=== PATIENT | female | born 1985 | race Caucasian/White ===

== ENCOUNTER 2017-06-24 09:08 | Inpatient (IN) | payer OTHER ==
[2017-06-24 10:03] VITALS: BMI 19.5
--- NOTE | 2017-06-24 10:51 | HP ---
CIWA Score - CIWA Score Nausea/Vomitin Muscle Tremors: 4-Moderate,w/Arms Extend Anxiety: 5 Agitation: 5 Paroxysmal Sweats: 3 Orientation: 2-Disoriented Date<2 days Tacttile Disturbances: 2-Mild Itch/Numbness/Burn Auditory Disturbances: 0-None Visual Disturbances: 0-None Headache: 2-Mild CIWA-Ar Total Score: 26 Admission ROS BHS - HPI Chief Complaint: Withdrawal sx. Allergies/Adverse Reactions: Allergies Allergy/AdvReac Type Severity Reaction Status Date / Time No Known Allergies Allergy Verified 06/24/17 10:02 History of Present Illness: 32 y/o woman with a long hx. of alcoholism is admitted for detox. Pt. is currently receiving suboxone 8mg/d last medicated 06/16/17. Exam Limitations: No Limitations - Ebola screening Have you traveled outside of the country in the last 21 days: No (N) Have you had contact with anyone from an Ebola affected area: No Have you been sick,other than usual withdrawal symptoms: No Do you have a fever: No - Review of Systems Constitutional: Diaphoresis EENT: reports: No Symptoms Reported Respiratory: reports: No Symptoms reported Cardiac: reports: No Symptoms Reported GI: reports: Nausea, Abdominal cramping : reports: No Symptoms Reported Musculoskeletal: reports: No Symptoms Reported Integumentary: reports: Sweating Neuro: reports: Headache, Tremors Endocrine: reports: No Symptoms Reported Hematology: reports: No Symptoms Reported Psychiatric: reports: No Sypmtoms Reported Other Systems: Reviewed and Negative Patient History - Patient Medical History Hx Anemia: No Hx Asthma: No Hx Chronic Obstructive Pulmonary Disease (COPD): No Hx Cancer: No Hx Cardiac Disorders: No Hx Congestive Heart Failure: No Hx Hypertension: No Hx Hypercholesterolemia: No Hx Pacemaker: No HX Cerebrovascular Accident: No Hx Seizures: No Hx Dementia: No Hx Diabetes: No Hx Gastrointestinal Disorders: No Hx Liver Disease: No Hx Genitourinary Disorders: No Hx Sexually Transmitted Disorders: No Hx Renal Disease (ESRD): No Hx Thyroid Disease: No Hx Human Immunodeficiency Virus (HIV): Yes (on complera) Hx Hepatitis C: No Hx Depression: Yes Hx Suicide Attempt: No Hx Bipolar Disorder: No Hx Schizophrenia: No - Patient Surgical History Past Surgical History: No - PPD History Previous Implant?: Yes Documented Results: Negative w/o proof Implanted On Prior [facility] Admission?: No PPD to be Administered?: Yes - Reproductive History Last Menstrual Period: 05/25/17 Patient : No - Smoking Cessation Smoking history: Current every day smoker Have you smoked in the past 12 months: Yes Aproximately how many cigarettes per day: 3 Hx Chewing Tobacco Use: No Initiated information on smoking cessation: Yes 'Breaking Loose' booklet given: 06/24/17 - Substance & Tx. History Hx Alcohol Use: Yes Hx Substance Use: Yes Substance Use Type: Alcohol, Opiates Hx Substance Use Treatment: Yes (Buprenorphine maintenance) - Substances Abused Alcohol Route: Oral Frequency: Daily Amount used: 2 PINTS VODKA Age of first use: 12 Date of Last Use: 06/24/17 PERCOCETS Route: Oral Frequency: Daily Amount used: 2-3 PILLS 10MG Age of first use: 20 Date of Last Use: 06/23/17 Family Disease History - Family Disease History Family History: Denies Admission Physical Exam [facility] - Vital Signs Vital Signs: Vital Signs - 24 hr 06/24/17 09:58 Temperature 96.7 F L Pulse Rate 121 H Respiratory 18 Rate Blood Pressure 127/91 - Physical General Appearance: Yes: Alcohol on Breath, Tremorous, Irritable, Sweating, Anxious HEENTM: Yes: Within Normal Limits Respiratory: Yes: Chest Non-Tender, Lungs Clear, Normal Breath Sounds Neck: Yes: Supple Breast: Yes: Breast Exam Deferred Cardiology: Yes: Regular Rhythm, Regular Rate, S1, S2 Abdominal: Yes: Normal Bowel Sounds, Non Tender, Flat Genitourinary: Yes: Within Normal Limits Back: Yes: Within Normal Limits Musculoskeletal: Yes: Within Normal Limits Extremities: Yes: Tremors Neurological: Yes: Fully Oriented, Alert Integumentary: Yes: Diaphoresis Lymphatic: Yes: Within Normal Limits - Diagnostic (1) Alcohol dependence with uncomplicated withdrawal Current Visit: Yes Status: Acute (2) Opioid dependence on agonist therapy Current Visit: Yes Status: Acute (3) HIV (human immunodeficiency virus infection) Current Visit: Yes Status: Acute Cleared for Admission [facility] - Detox or Rehab [facility] Level of Care: Medically Managed Detox Regimen/Protocol: Valium, Suboxone (Maintenance) [facility] Breath Alcohol Content Breath Alcohol Content: 0.287 Urine Pregancy Test - Result Urine Test Results: Negative- NO Line Present Urine Drug Screen - Results Drug Screen Negative: No Urine Drug Screen Results: AMP-Amphetamines, BZO-Benzodiazepines, OXY-Oxycodone
[2017-06-24] MEDS ORDERED: NICOTINE POLACRILEX 2 MG GUM BUC PRN (11:00)
[2017-06-24] MEDS ORDERED: LOPERAMIDE HCL 2 MG CAPSULE PO PRN (11:00)
[2017-06-24] MEDS ORDERED: MAGNESIUM HYDROX 2400MG/30ML ORAL SUSPENSION 30 ML CUP PO PRN (11:00)
[2017-06-24] MEDS ORDERED: ACETAMINOPHEN 325 MG TABLET (FP) PO PRN (11:00)
[2017-06-24] MEDS ORDERED: guaiFENesin/D-METHORPHAN HB 10 ML UNIT-DOSE CUPS PO PRN (11:00)
[2017-06-24] MEDS ORDERED: MAG HYDROX/AL HYDROX/SIMETH 30 ML UNIT-DOSE CUP PO PRN (11:00)
[2017-06-24] MEDS ORDERED: P-EPHED 60MG/TRIPROLIDI 2.5MG TABLET PO PRN (11:00)
[2017-06-24] MEDS ORDERED: MAGNESIUM CITRATE 300 ML BOTTLE PO PRN (11:00)
[2017-06-24] MEDS ORDERED: MENTHOL/PHENOL 1 EACH UD MM PRN (11:00)
[2017-06-24] MEDS ORDERED: diazePAM 5 MG TABLET PO ONE (11:13)
[2017-06-24] MEDS: hydrOXYzine PAMOATE 25 MG CAPSULE (FP) PO PRN ×2 (11:36→19:03)
[2017-06-24] MEDS: BUPRENORPHINE/NALOXONE 2 MG/0.5 MG FILM PACKET SL SCH ×2 (11:36→22:55)
[2017-06-24] MEDS: IBUPROFEN 400 MG TABLET (FP) PO PRN ×2 (11:37→19:03)
[2017-06-24] MEDS: NICOTINE 7 MG/24 HOURS TOPICAL PATCH TD SCH (11:39)
[2017-06-24] MEDS: EMTRICITAB/RILPIVIRINE/TENOFOV 1 EACH TABLET PO SCH (12:00)
[2017-06-24] MEDS: diazePAM 5 MG TABLET PO SCH ×2 (14:30→22:55)
--- NOTE | 2017-06-24 15:15 | EKG ---
Test Reason : Blood Pressure : / mmHG Vent. Rate : 104 BPM Atrial Rate : 104 BPM P-R Int : 120 ms QRS Dur : 088 ms QT Int : 362 ms P-R-T Axes : 075 076 047 degrees QTc Int : 476 ms SINUS TACHYCARDIA OTHERWISE NORMAL ECG NO PREVIOUS ECGS AVAILABLE Confirmed by MD CHANG, BELLA ([id number]) on 06/24/2017 3:14:44 PM Referred By: Confirmed By:BELLA DOWNING MD
[2017-06-24] MEDS: diazePAM 5 MG TABLET PO PRN ×2 (17:25→20:44)
[2017-06-24] MEDS ORDERED: TRIMETHOBENZAMIDE HCL 200MG/2ML INJ IM ONE (20:30)
[2017-06-24] MEDS: THIAMINE HCL 100 MG TABLET (FP) PO SCH (22:57)
[2017-06-24] MEDS ORDERED: ONDANSETRON *ODT* 4 MG TABLET SL ONE (23:03)
[2017-06-25] MEDS: diazePAM 5 MG TABLET PO PRN ×2 (01:30→09:39)
[2017-06-25] MEDS: diazePAM 5 MG TABLET PO SCH (06:08)
[2017-06-25] MEDS: PRENATAL VITAMINS W/ FOLIC ACID TABLET (FP) PO SCH (09:38)
[2017-06-25] MEDS: BUPRENORPHINE/NALOXONE 2 MG/0.5 MG FILM PACKET SL SCH ×2 (09:39→22:04)
[2017-06-25] MEDS: NICOTINE 7 MG/24 HOURS TOPICAL PATCH TD SCH (09:44)
[2017-06-25 10:02] LABS: HEMATOCRIT 40.3 % (32.4-45.2); HEMOGLOBIN 13.2 GM/dL (10.7-15.3); MCH 29.9 pg (25.7-33.7); MCHC 32.7 g/dl (32.0-36.0); MEAN CELL VOLUME 91.5 fl (80-96); MEAN PLT VOLUME 9.1 fl (7.5-11.1); PLATELET COUNT 210 K/MM3 (134-434); RDW 19.7 % (11.6-15.6); WHITE BLOOD COUNT 7.7 K/mm3 (4.0-10.0)
[2017-06-25 10:03] LABS: CHLORIDE 100 mmol/L (98-107); POTASSIUM 3.4 mmol/L (3.5-5.1); SODIUM 137 mmol/L (136-145)
[2017-06-25 10:14] LABS: ALBUMIN 3.3 g/dl (3.4-5.0); ALK PHOS 117 U/L (45-117); ANION GAP 8 (8-16); BILIRUBIN,TOTAL 2.7 mg/dL (0.2-1.0); BLOOD UREA NITROGEN 16 mg/dL (7-18); CALCIUM 8.5 mg/dL (8.5-10.1); CO2 29 mmol/L (21-32); CREATININE 0.7 mg/dL (0.55-1.02); GLUCOSE,RANDOM 136 mg/dL (74-106); SGOT/AST 136 U/L (15-37); SGPT/ALT 87 U/L (12-78); TOT PROT 6.6 g/dl (6.4-8.2)
--- NOTE | 2017-06-25 10:49 | CONSULT ---
[facility] Psychiatric Consult - Data Date of interview: 06/25/17 Admission source: [facility] Identifying data: Pt. is a 32 year old female, single, mother of one and currently unemployed. This is patient's first admission to [facility]. Pt. admitted to for opiate and alcohol dependence. Substance Abuse History: Following information confirmed with Ms. Headley: - Smoking Cessation. Smoking history: Current every day smoker. Have you smoked in the past 12 months: Yes. Aproximately how many cigarettes per day: 3. Hx Chewing Tobacco Use: No. Initiated information on smoking cessation: Yes. ' Breaking Loose' booklet given: 06/24/17. - Substance & Tx. History. Hx Alcohol Use: Yes. Hx Substance Use: Yes. Substance Use Type: Alcohol, Opiates. Hx Substance Use Treatment: Yes (Buprenorphine maintenance). - Substances Abused. Alcohol. Route: Oral. Frequency: Daily. Amount used: 2 PINTS VODKA. Age of first use: 12. Date of Last Use: 06/24/17. PERCOCETS. Route: Oral. Frequency: Daily. Amount used: 2-3 PILLS 10MG. Age of first use: 20. Date of Last Use: 06/23/17 Medical History: HIV Psychiatric History: Pt. reports h/o one psychiatric hospitalization at a hospital in [place] in 2011 for depression. Pt. is currently provided OPC from the [facility] service in the [place]. Reports a diagnosis of ADHD, anxiety, and MDD. Reports currently taking trazodone 50mg and Wellbutrin 75mg. Pt. denies h/o suicide attempts. Physical/Sexual Abuse/Trauma History: Denies. Mental Status Exam - Mental Status Exam Alert and Oriented to: Time, Place, Person Cognitive Function: Good Patient Appearance: Well Groomed Mood: Withdrawn Affect: Mood Congruent Patient Behavior: Sedated, Fatigued, Guarded Speech Pattern: Delayed Voice Loudness: Moderately Soft/Quiet Thought Process: Goal Oriented Thought Disorder: Not Present Hallucinations: Denies Suicidal Ideation: Denies Homicidal Ideation: Denies Insight/Judgement: Poor Sleep: Fair Appetite: Fair Muscle strength/Tone: Normal Gait/Station: Normal Psychiatric Findings - Problem List ([place] 1, 2,3) (1) MDD (major depressive disorder) Current Visit: Yes Status: Chronic Comment: Self- reports (2) Alcohol dependence with uncomplicated withdrawal Current Visit: Yes Status: Acute (3) Opioid dependence on agonist therapy Current Visit: Yes Status: Acute (4) Anxiety disorder Current Visit: Yes Status: Chronic Comment: Self reports. - Initial Treatment Plan Initial Treatment Plan: Psychoeducation provided. Detoxification provided. Trazodone 50mg po HS and Wellbutrin 75mg po BID daily ordered. Benefits and side effects discussed. Verbal consent given. Will continue to monitor patient.
[2017-06-25] MEDS: EMTRICITAB/RILPIVIRINE/TENOFOV 1 EACH TABLET PO SCH (11:15)
[2017-06-25] MEDS: chlordiazePOXIDE HCL 25 MG CAPSULE PO SCH ×3 (11:16→22:04)
--- NOTE | 2017-06-25 12:52 | PN ---
S CIWA - CIWA Score Nausea/Vomitin Muscle Tremors: 5 Anxiety: 5 Agitation: 5 Paroxysmal Sweats: 3 Orientation: 0-Oriented Tacttile Disturbances: 0-None Auditory Disturbances: 0-None Visual Disturbances: 0-None Headache: 0-None Present CIWA-Ar Total Score: 20 BHS Progress Note (SOAP) Subjective: Tremors,anxiety,sweating,interrupted sleep,restless Objective: 06/25/17 12:51 Vital Signs - 8 hr 06/25/17 06/25/17 06:23 10:29 Temperature 97.9 F 97.9 F Pulse Rate 67 86 Respiratory 18 16 Rate Blood Pressure 117/78 118/72 Laboratory Tests 06/25/17 06/25/17 07:50 07:50 WBC 7.7 RBC 4.40 Hgb 13.2 Hct 40.3 MCV 91.5 MCH 29.9 MCHC 32.7 RDW 19.7 H Plt Count 210 MPV 9.1 Sodium 137 Potassium 3.4 L Chloride 100 Carbon Dioxide 29 Anion Gap 8 BUN 16 Creatinine 0.7 Creat Clearance w eGFR > 60 Random Glucose 136 H Calcium 8.5 Total Bilirubin 2.7 H AST 136 H ALT 87 H Alkaline Phosphatase 117 Total Protein 6.6 Albumin 3.3 L labs noted Assessment: 06/25/17 12:51 Withdrawal sx. Plan: Continue detox
[2017-06-25] MEDS: hydrOXYzine PAMOATE 25 MG CAPSULE (FP) PO PRN (17:48)
[2017-06-25] MEDS: traZODone HCL 50 MG TABLET (FP) PO SCH (22:04)
[2017-06-25] MEDS: THIAMINE HCL 100 MG TABLET (FP) PO SCH (22:05)
[2017-06-25 22:06] LABS: URINE APPEARANCE CLOUDY; URINE BILIRUBIN NEGATIVE (NEGATIVE); URINE BLOOD 1+ (NEGATIVE); URINE COLOR AMBER; URINE GLUCOSE (UA) NEGATIVE (NEGATIVE); URINE KETONE NEGATIVE (NEGATIVE); URINE NITRITE NEGATIVE (NEGATIVE); URINE UROBILINOGEN 4.0 E.U/dl mg/dL (0.2-1.0)
[2017-06-25 22:07] LABS: URINE LEUK ESTERASE 2+ (NEGATIVE); URINE PROTEIN 2+ (NEGATIVE)
[2017-06-25 22:10] LABS: EPI CELLS RARE /HPF (FEW); URINE BACTERIA RARE /hpf (NONE SEEN); URINE MUCUS MODERATE
[2017-06-25] MEDS: ONDANSETRON *ODT* 4 MG TABLET SL PRN (23:08)
[2017-06-26] MEDS: chlordiazePOXIDE HCL 25 MG CAPSULE PO SCH ×4 (06:15→23:00)
[2017-06-26] MEDS: ONDANSETRON *ODT* 4 MG TABLET SL PRN ×2 (06:19→12:50)
[2017-06-26] MEDS ORDERED: diazePAM 5 MG TABLET PO SCH (10:00)
[2017-06-26] MEDS: buPROPion HCL 75 MG TABLET PO SCH (10:40)
[2017-06-26] MEDS: POTASSIUM CHLORIDE TABS 20 MEQ TABLET.ER (FP) PO SCH ×2 (10:40→10:45)
[2017-06-26] MEDS: PRENATAL VITAMINS W/ FOLIC ACID TABLET (FP) PO SCH (10:40)
[2017-06-26] MEDS: NICOTINE 7 MG/24 HOURS TOPICAL PATCH TD SCH (10:41)
[2017-06-26] MEDS: BUPRENORPHINE/NALOXONE 2 MG/0.5 MG FILM PACKET SL SCH ×2 (10:41→23:01)
[2017-06-26] MEDS: EMTRICITAB/RILPIVIRINE/TENOFOV 1 EACH TABLET PO SCH (10:41)
[2017-06-26] MEDS: hydrOXYzine PAMOATE 25 MG CAPSULE (FP) PO PRN ×2 (10:41→19:59)
[2017-06-26] MEDS: chlordiazePOXIDE HCL 25 MG CAPSULE PO PRN (12:50)
--- NOTE | 2017-06-26 12:53 | PN ---
[facility] CIWA - CIWA Score Nausea/Vomitin Muscle Tremors: 4-Moderate,w/Arms Extend Anxiety: 4-Mod. Anxious/Guarded Agitation: 4-Moderately Restless Paroxysmal Sweats: 1-Minimal Palms Moist Orientation: 0-Oriented Tacttile Disturbances: 0-None Auditory Disturbances: 0-None Visual Disturbances: 0-None Headache: 0-None Present CIWA-Ar Total Score: 15 BHS Progress Note (SOAP) Subjective: sweat tremor GI distress "I took a shower" Objective: 06/26/17 12:57 Vital Signs Temperature 97.7 F 06/26/17 10:26 Pulse Rate 109 H 06/26/17 10:26 Respiratory Rate 16 06/26/17 10:26 Blood Pressure 102/61 06/26/17 10:26 O2 Sat by Pulse Oximetry (%) Laboratory Last Values WBC 7.7 K/mm3 (4.0-10.0) 06/25/17 07:50 RBC 4.40 M/mm3 (3.60-5.2) 06/25/17 07:50 Hgb 13.2 GM/dL (10.7-15.3) 06/25/17 07:50 Hct 40.3 % (32.4-45.2) 06/25/17 07:50 MCV 91.5 fl (80-96) 06/25/17 07:50 MCH 29.9 pg (25.7-33.7) 06/25/17 07:50 MCHC 32.7 g/dl (32.0-36.0) 06/25/17 07:50 RDW 19.7 % (11.6-15.6) H 06/25/17 07:50 Plt Count 210 K/MM3 (134-434) 06/25/17 07:50 MPV 9.1 fl (7.5-11.1) 06/25/17 07:50 Sodium 137 mmol/L (136-145) 06/25/17 07:50 Potassium 3.4 mmol/L (3.5-5.1) L 06/25/17 07:50 Chloride 100 mmol/L (98-107) 06/25/17 07:50 Carbon Dioxide 29 mmol/L (21-32) 06/25/17 07:50 Anion Gap 8 (8-16) 06/25/17 07:50 BUN 16 mg/dL (7-18) 06/25/17 07:50 Creatinine 0.7 mg/dL (0.55-1.02) 06/25/17 07:50 Creat Clearance w eGFR > 60 (>60) 06/25/17 07:50 Random Glucose 136 mg/dL (74-106) H 06/25/17 07:50 Calcium 8.5 mg/dL (8.5-10.1) 06/25/17 07:50 Total Bilirubin 2.7 mg/dL (0.2-1.0) H 06/25/17 07:50 AST 136 U/L (15-37) H 06/25/17 07:50 ALT 87 U/L (12-78) H 06/25/17 07:50 Alkaline Phosphatase 117 U/L (45-117) 06/25/17 07:50 Total Protein 6.6 g/dl (6.4-8.2) 06/25/17 07:50 Albumin 3.3 g/dl (3.4-5.0) L 06/25/17 07:50 Urine Color Desirae 06/25/17 22:00 Urine Appearance Cloudy 06/25/17 22:00 Urine pH 7.0 (5.0-8.0) 06/25/17 22:00 Ur Specific [place] 1.018 (1.001-1.035) 06/25/17 22:00 Urine Protein 2+ (NEGATIVE) H 06/25/17 22:00 Urine Glucose (UA) Negative (NEGATIVE) 06/25/17 22:00 Urine Ketones Negative (NEGATIVE) 06/25/17 22:00 Urine Blood 1+ (NEGATIVE) H 06/25/17 22:00 Urine Nitrite Negative (NEGATIVE) 06/25/17 22:00 Urine Bilirubin Negative (NEGATIVE) 06/25/17 22:00 Urine Urobilinogen 4.0 e.u/dl mg/dL (0.2-1.0) H 06/25/17 22:00 Ur Leukocyte Esterase 2+ (NEGATIVE) H 06/25/17 22:00 Urine WBC (Auto) 419 /hpf (3-5) 06/25/17 22:00 Urine RBC (Auto) 6 /hpf (0-3) 06/25/17 22:00 Ur Epithelial Cells Rare /HPF (FEW) 06/25/17 22:00 Urine Bacteria Rare /hpf (NONE SEEN) 06/25/17 22:00 Urine Mucus Moderate 06/25/17 22:00 RPR Titer Nonreactive (NONREACTIVE) 06/25/17 07:50 lab noted Assessment: 06/26/17 12:58 withdrawal sx Plan: continue detox
[2017-06-26] MEDS: THIAMINE HCL 100 MG TABLET (FP) PO SCH (23:00)
[2017-06-26] MEDS: traZODone HCL 50 MG TABLET (FP) PO SCH (23:00)
[2017-06-27] MEDS: chlordiazePOXIDE HCL 25 MG CAPSULE PO SCH (05:34)
[2017-06-27] MEDS: EMTRICITAB/RILPIVIRINE/TENOFOV 1 EACH TABLET PO SCH (08:02)
[2017-06-27] MEDS: hydrOXYzine PAMOATE 25 MG CAPSULE (FP) PO PRN ×2 (08:54→17:06)
[2017-06-27] MEDS: NICOTINE 7 MG/24 HOURS TOPICAL PATCH TD SCH (11:16)
[2017-06-27] MEDS: POTASSIUM CHLORIDE TABS 20 MEQ TABLET.ER (FP) PO SCH (11:16)
[2017-06-27] MEDS: PRENATAL VITAMINS W/ FOLIC ACID TABLET (FP) PO SCH (11:17)
[2017-06-27] MEDS: BUPRENORPHINE/NALOXONE 2 MG/0.5 MG FILM PACKET SL SCH ×2 (11:17→22:33)
[2017-06-27] MEDS: chlordiazePOXIDE 5 MG CAPSULE PO SCH ×3 (11:18→22:33)
[2017-06-27] MEDS: chlordiazePOXIDE HCL 25 MG CAPSULE PO PRN (13:21)
[2017-06-27] MEDS: buPROPion HCL 75 MG TABLET PO SCH (13:23)
--- NOTE | 2017-06-27 14:52 | PN ---
BHS Progress Note (SOAP) Subjective: lower back pain hip pain shakes Objective: 06/27/17 14:50 Vital Signs Temperature 97.5 F L 06/27/17 14:42 Pulse Rate 125 H 06/27/17 14:42 Respiratory Rate 20 06/27/17 14:42 Blood Pressure 108/64 06/27/17 14:42 O2 Sat by Pulse Oximetry (%) Laboratory Last Values WBC 7.7 K/mm3 (4.0-10.0) 06/25/17 07:50 RBC 4.40 M/mm3 (3.60-5.2) 06/25/17 07:50 Hgb 13.2 GM/dL (10.7-15.3) 06/25/17 07:50 Hct 40.3 % (32.4-45.2) 06/25/17 07:50 MCV 91.5 fl (80-96) 06/25/17 07:50 MCH 29.9 pg (25.7-33.7) 06/25/17 07:50 MCHC 32.7 g/dl (32.0-36.0) 06/25/17 07:50 RDW 19.7 % (11.6-15.6) H 06/25/17 07:50 Plt Count 210 K/MM3 (134-434) 06/25/17 07:50 MPV 9.1 fl (7.5-11.1) 06/25/17 07:50 Sodium 137 mmol/L (136-145) 06/25/17 07:50 Potassium 3.4 mmol/L (3.5-5.1) L 06/25/17 07:50 Chloride 100 mmol/L (98-107) 06/25/17 07:50 Carbon Dioxide 29 mmol/L (21-32) 06/25/17 07:50 Anion Gap 8 (8-16) 06/25/17 07:50 BUN 16 mg/dL (7-18) 06/25/17 07:50 Creatinine 0.7 mg/dL (0.55-1.02) 06/25/17 07:50 Creat Clearance w eGFR > 60 (>60) 06/25/17 07:50 Random Glucose 136 mg/dL (74-106) H 06/25/17 07:50 Calcium 8.5 mg/dL (8.5-10.1) 06/25/17 07:50 Total Bilirubin 2.7 mg/dL (0.2-1.0) H 06/25/17 07:50 AST 136 U/L (15-37) H 06/25/17 07:50 ALT 87 U/L (12-78) H 06/25/17 07:50 Alkaline Phosphatase 117 U/L (45-117) 06/25/17 07:50 Total Protein 6.6 g/dl (6.4-8.2) 06/25/17 07:50 Albumin 3.3 g/dl (3.4-5.0) L 06/25/17 07:50 Urine Color Desirae 06/25/17 22:00 Urine Appearance Cloudy 06/25/17 22:00 Urine pH 7.0 (5.0-8.0) 06/25/17 22:00 Ur Specific [place] 1.018 (1.001-1.035) 06/25/17 22:00 Urine Protein 2+ (NEGATIVE) H 06/25/17 22:00 Urine Glucose (UA) Negative (NEGATIVE) 06/25/17 22:00 Urine Ketones Negative (NEGATIVE) 06/25/17 22:00 Urine Blood 1+ (NEGATIVE) H 06/25/17 22:00 Urine Nitrite Negative (NEGATIVE) 06/25/17 22:00 Urine Bilirubin Negative (NEGATIVE) 06/25/17 22:00 Urine Urobilinogen 4.0 e.u/dl mg/dL (0.2-1.0) H 06/25/17 22:00 Ur Leukocyte Esterase 2+ (NEGATIVE) H 06/25/17 22:00 Urine WBC (Auto) 419 /hpf (3-5) 06/25/17 22:00 Urine RBC (Auto) 6 /hpf (0-3) 06/25/17 22:00 Ur Epithelial Cells Rare /HPF (FEW) 06/25/17 22:00 Urine Bacteria Rare /hpf (NONE SEEN) 06/25/17 22:00 Urine Mucus Moderate 06/25/17 22:00 RPR Titer Nonreactive (NONREACTIVE) 06/25/17 07:50 labs noted Assessment: 06/27/17 14:51 withdrawal sx Plan: continue detox
[2017-06-27] MEDS: IBUPROFEN 400 MG TABLET (FP) PO PRN (17:08)
[2017-06-27] MEDS: ONDANSETRON *ODT* 4 MG TABLET SL PRN (17:15)
[2017-06-27] MEDS: traZODone HCL 50 MG TABLET (FP) PO SCH (22:33)
[2017-06-27] MEDS: THIAMINE HCL 100 MG TABLET (FP) PO SCH (22:33)
[2017-06-28] MEDS: hydrOXYzine PAMOATE 25 MG CAPSULE (FP) PO PRN ×4 (00:40→22:33)
[2017-06-28] MEDS: chlordiazePOXIDE 5 MG CAPSULE PO SCH (05:34)
[2017-06-28] MEDS: EMTRICITAB/RILPIVIRINE/TENOFOV 1 EACH TABLET PO SCH (08:19)
[2017-06-28] MEDS ORDERED: diazePAM 5 MG TABLET PO SCH (10:00)
[2017-06-28] MEDS: chlordiazePOXIDE HCL 10 MG CAPSULE PO SCH ×3 (10:52→22:33)
[2017-06-28] MEDS: PRENATAL VITAMINS W/ FOLIC ACID TABLET (FP) PO SCH (10:52)
[2017-06-28] MEDS: NICOTINE 7 MG/24 HOURS TOPICAL PATCH TD SCH (10:52)
[2017-06-28] MEDS: POTASSIUM CHLORIDE TABS 20 MEQ TABLET.ER (FP) PO SCH (10:52)
[2017-06-28] MEDS: BUPRENORPHINE/NALOXONE 2 MG/0.5 MG FILM PACKET SL SCH ×2 (10:53→17:03)
[2017-06-28] MEDS: buPROPion HCL 75 MG TABLET PO SCH (10:53)
[2017-06-28] MEDS: ONDANSETRON *ODT* 4 MG TABLET SL PRN (12:34)
--- NOTE | 2017-06-28 14:43 | PN ---
BHS Progress Note (SOAP) Subjective: poor sleep anxiety shaky Objective: 06/28/17 14:42 Laboratory Tests 06/25/17 06/25/17 06/25/17 07:50 07:50 07:50 WBC 7.7 RBC 4.40 Hgb 13.2 Hct 40.3 MCV 91.5 MCH 29.9 MCHC 32.7 RDW 19.7 H Plt Count 210 MPV 9.1 Sodium 137 Potassium 3.4 L Chloride 100 Carbon Dioxide 29 Anion Gap 8 BUN 16 Creatinine 0.7 Creat Clearance w eGFR > 60 Random Glucose 136 H Calcium 8.5 Total Bilirubin 2.7 H AST 136 H ALT 87 H Alkaline Phosphatase 117 Total Protein 6.6 Albumin 3.3 L Urine Color Urine Appearance Urine pH Ur Specific [place] Urine Protein Urine Glucose (UA) Urine Ketones Urine Blood Urine Nitrite Urine Bilirubin Urine Urobilinogen Ur Leukocyte Esterase Urine WBC (Auto) Urine RBC (Auto) Ur Epithelial Cells Urine Bacteria Urine Mucus RPR Titer Nonreactive 06/25/17 22:00 WBC RBC Hgb Hct MCV MCH MCHC RDW Plt Count MPV Sodium Potassium Chloride Carbon Dioxide Anion Gap BUN Creatinine Creat Clearance w eGFR Random Glucose Calcium Total Bilirubin AST ALT Alkaline Phosphatase Total Protein Albumin Urine Color Desirae Urine Appearance Cloudy Urine pH 7.0 Ur Specific [place] 1.018 Urine Protein 2+ H Urine Glucose (UA) Negative Urine Ketones Negative Urine Blood 1+ H Urine Nitrite Negative Urine Bilirubin Negative Urine Urobilinogen 4.0 e.u/dl H Ur Leukocyte Esterase 2+ H Urine WBC (Auto) 419 Urine RBC (Auto) 6 Ur Epithelial Cells Rare Urine Bacteria Rare Urine Mucus Moderate RPR Titer Vital Signs - 24 hr 06/27/17 06/27/17 06/28/17 18:39 23:13 03:30 Temperature 97.9 F 98.2 F Pulse Rate 119 H 113 H Respiratory 18 16 18 Rate Blood Pressure 106/57 89/74 06/28/17 06/28/17 06:00 09:40 Temperature 97.9 F 98.0 F Pulse Rate 95 H 108 H Respiratory 16 18 Rate Blood Pressure 101/64 105/70 Assessment: 06/28/17 14:42 ongoing withdrawal Plan: continue detox protocol
[2017-06-28] MEDS: IBUPROFEN 400 MG TABLET (FP) PO PRN (17:03)
[2017-06-28] MEDS: THIAMINE HCL 100 MG TABLET (FP) PO SCH (22:33)
[2017-06-28] MEDS: traZODone HCL 50 MG TABLET (FP) PO SCH (22:43)
[2017-06-29] MEDS: hydrOXYzine PAMOATE 25 MG CAPSULE (FP) PO PRN ×2 (02:54→09:29)
[2017-06-29] MEDS: chlordiazePOXIDE HCL 10 MG CAPSULE PO SCH (06:11)
[2017-06-29 06:52] VITALS: BP 105/64; PULSE 87; TEMP 97.7
--- NOTE | 2017-06-29 09:08 | DS ---
[facility] Detox Discharge Summary Admission Date: 06/24/17 Discharge Date: 06/29/17 - History Present History: Alcohol Dependence, Opioid Dependence - Physical Exam Results Vital Signs: Vital Signs Temperature 97.7 F 06/29/17 06:00 Pulse Rate 87 06/29/17 06:00 Respiratory Rate 16 06/29/17 06:00 Blood Pressure 105/64 06/29/17 06:00 O2 Sat by Pulse Oximetry (%) - Treatment Hospital Course: Detox Protocol Followed, Detoxed Safely, Responded well, Discharged Condition Good - Medication Discharge Medications: Ambulatory Orders Buprenorphine HCl/Naloxone HCl [Suboxone 8 mg-2 mg Sl Tablets] 1 each SL DAILY 06/24/17 Dextroamphetamine/Amphetamine [Adderall Xr 30 mg Capsule] 30 mg PO DAILY Emtricitab/Rilpivirine/Tenofov [Complera -] 1 each PO DAILY 06/24/17 Bupropion HCl [Wellbutrin -] 75 mg PO DAILY #30 tablet 06/28/17 Hydroxyzine Pamoate [Vistaril -] 50 mg PO Q6H PRN #30 capsule 06/28/17 Trazodone HCl [Desyrel -] 50 mg PO HS #30 tablet 06/28/17 - Diagnosis (1) Alcohol dependence with uncomplicated withdrawal Current Visit: Yes Status: Chronic (2) HIV (human immunodeficiency virus infection) Current Visit: Yes Status: Chronic (3) Opioid dependence on agonist therapy Current Visit: Yes Status: Chronic (4) Anxiety disorder Current Visit: Yes Status: Chronic Qualifiers: Anxiety disorder type: unspecified anxiety disorder Qualified Code(s): F41.9 - Anxiety disorder, unspecified - AMA Did Patient Leave Against Medical Advice: No
[2017-06-29] MEDS: BUPRENORPHINE/NALOXONE 2 MG/0.5 MG FILM PACKET SL SCH (09:26)
[2017-06-29] MEDS: buPROPion HCL 75 MG TABLET PO SCH (09:26)
[2017-06-29] MEDS: PRENATAL VITAMINS W/ FOLIC ACID TABLET (FP) PO SCH (09:26)
[2017-06-29] MEDS: EMTRICITAB/RILPIVIRINE/TENOFOV 1 EACH TABLET PO SCH (09:26)
[2017-06-29] MEDS: POTASSIUM CHLORIDE TABS 20 MEQ TABLET.ER (FP) PO SCH (09:26)
== END 2017-06-29 09:36 | disposition home or self-care (01) | DRG 773 ==
LOC: YASAS 09:08 → Y6N 10:54
PROVIDERS: ADMIT Internal Medicine; ATTEND Internal Medicine
PROC: HZ2ZZZZ Detoxification Services for Substance Abuse Treatment (ICD-10-PCS; principal; 2017-06-24)
DX: F10.230 Alcohol dependence with withdrawal, uncomplicated (principal); F11.20 Opioid dependence, uncomplicated; F17.210 Nicotine dependence, cigarettes, uncomplicated; F41.9 Anxiety disorder, unspecified; F33.9 Major depressive disorder, recurrent, unspecified; Z21 Asymptomatic human immunodeficiency virus [HIV] infection status
CPT/HCPCS: 36415; 80053; 81003; 81015; 85027; 86593; 93005; 93010

== ENCOUNTER 2017-08-03 08:59 | Inpatient (IN) | payer OTHER ==
[2017-08-03 09:23] VITALS: BMI 17.2
--- NOTE | 2017-08-03 10:34 | HP ---
COWS - Scale Resting Pulse: 2= [place] 101-120 Sweatin=Flushed/Facial Moisture Restless Observation: 1= Difficult to Sit Still Pupil Size: 0= Normal to Room Light Bone or Joint Aches: 2= Severe Diffuse Aches Runny Nose/ Eye Tearin= Runny Nose/Eyes GI Upset > 30mins: 2= Nausea/Diarrhea Tremor Observation: 2= Slight Tremor Visible Yawning Observation: 2= >3x During Session Anxiety or Irritability: 2=Irritable/Anxious Goose Flesh Skin: 3=Piloerection COWS Score: 20 CIWA Score - CIWA Score Nausea/Vomitin-Mild Nausea/No Vomiting Muscle Tremors: 4-Moderate,w/Arms Extend Anxiety: 4-Mod. Anxious/Guarded Agitation: 4-Moderately Restless Paroxysmal Sweats: 3 Orientation: 0-Oriented Tacttile Disturbances: 0-None Auditory Disturbances: 0-None Visual Disturbances: 0-None Headache: 1-Very Mild CIWA-Ar Total Score: 17 Admission ROS BHS - HPI Chief Complaint: I need to stop drinking and need the help I need. Allergies/Adverse Reactions: Allergies Allergy/AdvReac Type Severity Reaction Status Date / Time No Known Drug Allergies Allergy Verified 08/03/17 09:37 meat Allergy Unknown Uncoded 08/03/17 09:37 History of Present Illness: pt is a 32yr old female with a history of percocet and alcohol dependence seeking detox for treatment. pt states she was on suboxone but hasnt been to a program over a year therefore she is willing to complete detox then go to our rehab for further tx and start suboxone while in our rehab. Exam Limitations: No Limitations - Ebola screening Have you traveled outside of the country in the last 21 days: No (N) Have you had contact with anyone from an Ebola affected area: No Have you been sick,other than usual withdrawal symptoms: No Do you have a fever: No - Review of Systems Constitutional: Chills, Diaphoresis, Loss of Appetite, Night Sweats, Changes in sleep, Unintentional Wgt. Loss EENT: reports: Tearing, Nose Congestion Respiratory: reports: No Symptoms reported Cardiac: reports: No Symptoms Reported GI: reports: Nausea, Poor Appetite, Poor Fluid Intake : reports: No Symptoms Reported Musculoskeletal: reports: Back Pain, Joint Pain, Muscle Pain Integumentary: reports: Flushing, Sweating Neuro: reports: Headache, Tingling, Tremors Endocrine: reports: Excessive Sweating, Intolerance to Heat, Increased Hunger Hematology: reports: No Symptoms Reported Psychiatric: reports: Judgement Intact, Mood/Affect Appropiate, Agitated, Anxious Other Systems: Reviewed and Negative Patient History - Patient Medical History Hx Anemia: No Hx Asthma: No Hx Chronic Obstructive Pulmonary Disease (COPD): No Hx Cancer: No Hx Cardiac Disorders: No Hx Congestive Heart Failure: No Hx Hypertension: No Hx Hypercholesterolemia: No Hx Pacemaker: No HX Cerebrovascular Accident: No Hx Seizures: No Hx Dementia: No Hx Diabetes: No Hx Gastrointestinal Disorders: No Hx Liver Disease: No Hx Genitourinary Disorders: No Hx Sexually Transmitted Disorders: No Hx Renal Disease (ESRD): No Hx Thyroid Disease: No Hx Human Immunodeficiency Virus (HIV): Yes (on complera) Hx Hepatitis C: No Hx Depression: Yes Hx Suicide Attempt: No Hx Bipolar Disorder: No Hx Schizophrenia: No - Patient Surgical History Past Surgical History: No Hx Neurologic Surgery: No Hx Cataract Extraction: No Hx Cardiac Surgery: No Hx Lung Surgery: No Hx Breast Surgery: No Hx Breast Biopsy: No Hx Abdominal Surgery: No Hx Appendectomy: No Hx Cholecystectomy: No Hx Genitourinary Surgery: No Hx Section: No Hx Orthopedic Surgery: No - PPD History Previous Implant?: Yes Documented Results: Negative w/proof Implanted On Prior [facility] Admission?: Yes Date: 06/26/17 Results: 0 mm PPD to be Administered?: No - Reproductive History Patient is a Female of Child Bearing Age (11 -55 yrs old): Yes Last Menstrual Period: 08/03/17 Patient : No - Smoking Cessation Smoking history: Current every day smoker Have you smoked in the past 12 months: Yes Aproximately how many cigarettes per day: 20 Hx Chewing Tobacco Use: No Initiated information on smoking cessation: Yes 'Breaking Loose' booklet given: 08/03/17 - Substance & Tx. History Hx Alcohol Use: Yes Hx Substance Use: Yes Substance Use Type: Alcohol, Opiates Hx Substance Use Treatment: Yes ([facility] 06/2017) - Substances Abused Alcohol-vodka Route: Oral Frequency: Daily Amount used: fifth Age of first use: 12 Date of Last Use: 08/03/17 Percocet Route: Oral Frequency: 1-3 times last 30 days Amount used: 2 tabs. (10 mg.) Age of first use: 17 Date of Last Use: 08/03/17 Family Disease History - Family Disease History Family History: Denies Admission Physical Exam [facility] - Vital Signs Vital Signs: Vital Signs - 24 hr 08/03/17 09:14 Temperature 98 F Pulse Rate 120 H Respiratory 18 Rate Blood Pressure 119/85 - Physical General Appearance: Yes: Appropriately Dressed, Moderate Distress, Thin, Tremorous, Irritable, Sweating, Anxious HEENTM: Yes: Normal Voice, Rhinorrhea Respiratory: Yes: Lungs Clear, Normal Breath Sounds, No Respiratory Distress Neck: Yes: No masses,lesions,Nodules Breast: Yes: Within Normal Limits Cardiology: Yes: Regular Rhythm, Regular Rate, S1, S2, Tachycardia Abdominal: Yes: Normal Bowel Sounds, Non Tender, Soft Genitourinary: Yes: Within Normal Limits Back: Yes: Normal Inspection Musculoskeletal: Yes: Within Normal Limits, Back pain Extremities: Yes: Normal Capillary Refill, Normal Inspection, Non-Tender, Tremors Neurological: Yes: Fully Oriented, Alert, Normal Response Integumentary: Yes: Normal Color, Diaphoresis Lymphatic: Yes: Within Normal Limits - Diagnostic (1) Alcohol dependence with uncomplicated withdrawal Current Visit: Yes Status: Chronic (2) Anxiety disorder Current Visit: No Status: Chronic Qualifiers: Comment: Self reports. (3) HIV (human immunodeficiency virus infection) Current Visit: Yes Status: Chronic Cleared for Admission [facility] - Detox or Rehab [facility] Level of Care: Medically Managed Detox Regimen/Protocol: Methadone/Librium [facility] Breath Alcohol Content Breath Alcohol Content: 0.430 Urine Pregancy Test - Result Urine Test Results: Negative- NO Line Present Urine Drug Screen - Results Drug Screen Negative: No Urine Drug Screen Results: TCA-Tricyclic Antidepress, OXY-Oxycodone
[2017-08-03] MEDS ORDERED: P-EPHED 60MG/TRIPROLIDI 2.5MG TABLET PO PRN (11:01)
[2017-08-03] MEDS ORDERED: MAGNESIUM HYDROX 2400MG/30ML ORAL SUSPENSION 30 ML CUP PO PRN (11:01)
[2017-08-03] MEDS ORDERED: LOPERAMIDE HCL 2 MG CAPSULE PO PRN (11:01)
[2017-08-03] MEDS ORDERED: guaiFENesin/D-METHORPHAN HB 10 ML UNIT-DOSE CUPS PO PRN (11:01)
[2017-08-03] MEDS ORDERED: MAG HYDROX/AL HYDROX/SIMETH 30 ML UNIT-DOSE CUP PO PRN (11:01)
[2017-08-03] MEDS ORDERED: MAGNESIUM CITRATE 300 ML BOTTLE PO PRN (11:01)
[2017-08-03] MEDS ORDERED: MENTHOL/PHENOL 1 EACH UD MM PRN (11:01)
[2017-08-03] MEDS ORDERED: IBUPROFEN 400 MG TABLET (FP) PO PRN (11:01)
[2017-08-03] MEDS ORDERED: chlordiazePOXIDE HCL 25 MG CAPSULE PO ONE (11:45)
[2017-08-03] MEDS ORDERED: cloNIDine HCL 0.1 MG TABLET PO ONE (11:45)
[2017-08-03] MEDS ORDERED: METHADONE HCL 10 MG TABLET (FOR DETOX USE ONLY) PO ONE ×2 (11:50→23:00)
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
[2017-08-03] MEDS: chlordiazePOXIDE HCL 25 MG CAPSULE PO SCH ×2 (17:11→22:24)
[2017-08-03] MEDS: hydrOXYzine PAMOATE 50 MG CAPSULE (FP) PO PRN (18:19)
[2017-08-03] MEDS: chlordiazePOXIDE HCL 25 MG CAPSULE PO PRN (19:37)
[2017-08-03] MEDS: THIAMINE HCL 100 MG TABLET (FP) PO SCH (22:23)
[2017-08-03] MEDS: traZODone HCL 50 MG TABLET (FP) PO SCH (22:24)
[2017-08-03 23:01] LABS: URINE APPEARANCE TURBID; URINE BILIRUBIN NEGATIVE (NEGATIVE); URINE BLOOD NEGATIVE (NEGATIVE); URINE COLOR RED; URINE GLUCOSE (UA) NEGATIVE (NEGATIVE); URINE KETONE TRACE (NEGATIVE); URINE NITRITE NEGATIVE (NEGATIVE)
[2017-08-03 23:07] LABS: URINE LEUK ESTERASE 2+ (NEGATIVE); URINE PROTEIN 2+ (NEGATIVE)
[2017-08-03 23:26] LABS: EPI CELLS RARE /HPF (FEW); URINE MUCUS MANY
[2017-08-04] MEDS: chlordiazePOXIDE HCL 25 MG CAPSULE PO SCH ×4 (04:19→22:01)
--- NOTE | 2017-08-04 08:46 | PN ---
[facility] CIWA - CIWA Score Nausea/Vomitin-Mild Nausea/No Vomiting Muscle Tremors: 4-Moderate,w/Arms Extend Anxiety: 4-Mod. Anxious/Guarded Agitation: 4-Moderately Restless Paroxysmal Sweats: 1-Minimal Palms Moist Orientation: 0-Oriented Tacttile Disturbances: 1-Very Mild Itch/Numbness Auditory Disturbances: 0-None Visual Disturbances: 0-None Headache: 0-None Present CIWA-Ar Total Score: 15 S COWS - Scale Resting Pulse: 2= ND 101-120 Sweatin= Chills/Flushing Restless Observation: 3= Extraneous Movement Pupil Size: 0= Normal to Room Light Bone or Joint Aches: 2= Severe Diffuse Aches Runny Nose/ Eye Tearin= Runny Nose/Eyes GI Upset > 30mins: 2= Nausea/Diarrhea Tremor Observation of Outstretched Hands: 2= Slight Tremor Visible Yawning Observation: 2= >3x During Session Anxiety or Irritability: 2=Irritable/Anxious Goose Flesh Skin: 0=Smooth Skin COWS Score: 18 [facility] Progress Note (SOAP) Subjective: itching skin sweat tremor restlessness gi distress Objective: 08/04/17 08:46 Vital Signs Temperature 97.7 F 08/04/17 06:00 Pulse Rate 61 08/04/17 06:00 Respiratory Rate 18 08/04/17 06:00 Blood Pressure 118/84 08/04/17 06:00 O2 Sat by Pulse Oximetry (%) Laboratory Last Values Urine Color Red 08/03/17 20:00 Urine Appearance Turbid 08/03/17 20:00 Urine pH 6.0 (5.0-8.0) 08/03/17 20:00 Ur Specific [place] 1.021 (1.001-1.035) 08/03/17 20:00 Urine Protein 2+ (NEGATIVE) H 08/03/17 20:00 Urine Glucose (UA) Negative (NEGATIVE) 08/03/17 20:00 Urine Ketones Trace (NEGATIVE) H 08/03/17 20:00 Urine Blood Negative (NEGATIVE) 08/03/17 20:00 Urine Nitrite Negative (NEGATIVE) 08/03/17 20:00 Urine Bilirubin Negative (NEGATIVE) 08/03/17 20:00 Urine Urobilinogen 2.0 mg/dL (0.2-1.0) H 08/03/17 20:00 Ur Leukocyte Esterase 2+ (NEGATIVE) H 08/03/17 20:00 Urine WBC (Auto) 53 /hpf (3-5) 08/03/17 20:00 Urine RBC (Auto) 1 /hpf (0-3) 08/03/17 20:00 Ur Epithelial Cells Rare /HPF (FEW) 08/03/17 20:00 Urine Mucus Many 08/03/17 20:00 lab noted repeat ua Assessment: 08/04/17 08:49 withdrawal sx Plan: continue detox
[2017-08-04] MEDS: EMTRICITAB/RILPIVIRINE/TENOFOV 1 EACH TABLET PO SCH (09:00)
[2017-08-04] MEDS ORDERED: EMTRICITAB/RILPIVIRINE/TENOFOV 1 EACH TABLET PO SCH (10:00)
[2017-08-04] MEDS ORDERED: METHADONE HCL 10 MG TABLET (FOR DETOX USE ONLY) PO SCH (10:00)
[2017-08-04 10:23] LABS: HEMATOCRIT 37.1 % (32.4-45.2); HEMOGLOBIN 12.3 GM/dL (10.7-15.3); MCH 30.9 pg (25.7-33.7); MCHC 33.2 g/dl (32.0-36.0); MEAN CELL VOLUME 93.3 fl (80-96); MEAN PLT VOLUME 9.3 fl (7.5-11.1); PLATELET COUNT 194 K/MM3 (134-434); RBC 3.98 M/mm3 (3.60-5.2); RDW 16.6 % (11.6-15.6); WHITE BLOOD COUNT 5.9 K/mm3 (4.0-10.0)
[2017-08-04 10:59] LABS: ANION GAP 13 (8-16); BILIRUBIN,TOTAL 0.8 mg/dL (0.2-1.0); BLOOD UREA NITROGEN 14 mg/dL (7-18); CALCIUM 7.6 mg/dL (8.5-10.1); CHLORIDE 107 mmol/L (98-107); CO2 23 mmol/L (21-32); CREATININE 0.7 mg/dL (0.55-1.02); GLUCOSE,RANDOM 80 mg/dL (74-106); SGOT/AST 103 U/L (15-37); SGPT/ALT 61 U/L (12-78); SODIUM 143 mmol/L (136-145); TOT PROT 7.2 g/dl (6.4-8.2)
[2017-08-04 11:00] LABS: ALK PHOS 105 U/L (45-117)
[2017-08-04] MEDS: NICOTINE 21 MG/24 HOURS TOPICAL PATCH TD SCH (11:00)
[2017-08-04] MEDS: PRENATAL VITAMINS W/ FOLIC ACID TABLET (FP) PO SCH (11:00)
[2017-08-04] MEDS: buPROPion HCL 75 MG TABLET PO SCH (11:00)
--- NOTE | 2017-08-04 11:44 | EKG ---
Test Reason : Blood Pressure : / mmHG Vent. Rate : 108 BPM Atrial Rate : 108 BPM P-R Int : 126 ms QRS Dur : 084 ms QT Int : 384 ms P-R-T Axes : 076 076 056 degrees QTc Int : 514 ms SINUS TACHYCARDIA POSSIBLE LEFT ATRIAL ENLARGEMENT BORDERLINE ECG WHEN COMPARED WITH ECG OF 24-JUN-2017 14:03, NO SIGNIFICANT CHANGE WAS FOUND Confirmed by MIGUELITO LATHAM MD ([id number]) on 08/04/2017 11:44:32 AM Referred By: Confirmed By:MIGUELITO LATHAM MD
[2017-08-04] MEDS: hydrOXYzine PAMOATE 50 MG CAPSULE (FP) PO PRN ×3 (13:16→22:33)
[2017-08-04] MEDS: chlordiazePOXIDE HCL 25 MG CAPSULE PO PRN (13:17)
[2017-08-04] MEDS ORDERED: TRIMETHOBENZAMIDE HCL 200MG/2ML INJ IM ONE (19:45)
[2017-08-04] MEDS: traZODone HCL 50 MG TABLET (FP) PO SCH (21:25)
[2017-08-04] MEDS: THIAMINE HCL 100 MG TABLET (FP) PO SCH (21:25)
[2017-08-04] MEDS ORDERED: MINERAL OIL/PETROLAT/WATER TOPICAL CREAM 113 GM JAR TP SCH (22:00)
[2017-08-05] MEDS: chlordiazePOXIDE HCL 25 MG CAPSULE PO PRN ×3 (01:30→19:44)
[2017-08-05] MEDS: hydrOXYzine PAMOATE 50 MG CAPSULE (FP) PO PRN ×4 (02:54→22:43)
[2017-08-05] MEDS: chlordiazePOXIDE HCL 25 MG CAPSULE PO SCH ×2 (05:14→10:29)
[2017-08-05] MEDS: EMTRICITAB/RILPIVIRINE/TENOFOV 1 EACH TABLET PO SCH (09:00)
--- NOTE | 2017-08-05 10:27 | PN ---
S CIWA - CIWA Score Nausea/Vomitin-No Nausea/No Vomiting Muscle Tremors: 4-Moderate,w/Arms Extend Anxiety: 3 Agitation: 3 Paroxysmal Sweats: 2 Orientation: 0-Oriented Tacttile Disturbances: 0-None Auditory Disturbances: 0-None Visual Disturbances: 0-None Headache: 0-None Present CIWA-Ar Total Score: 12 BHS COWS - Scale Resting Pulse: 2= ND 101-120 Sweatin= Chills/Flushing Restless Observation: 1= Difficult to Sit Still Pupil Size: 0= Normal to Room Light Bone or Joint Aches: 2= Severe Diffuse Aches Runny Nose/ Eye Tearin= Nasal Congestion GI Upset > 30mins: 0= None Tremor Observation of Outstretched Hands: 2= Slight Tremor Visible Yawning Observation: 2= >3x During Session Anxiety or Irritability: 2=Irritable/Anxious Goose Flesh Skin: 0=Smooth Skin COWS Score: 13 S Progress Note (SOAP) Subjective: I need to see psych again sweats agitation anxiety restless body aches Objective: 08/05/17 10:27 Vital Signs Temperature 98.1 F 08/05/17 10:00 Pulse Rate 111 H 08/05/17 10:00 Respiratory Rate 19 08/05/17 10:00 Blood Pressure 104/57 08/05/17 10:00 O2 Sat by Pulse Oximetry (%) Laboratory Tests 08/03/17 08/04/17 08/04/17 20:00 06:00 06:00 WBC 5.9 RBC 3.98 Hgb 12.3 Hct 37.1 MCV 93.3 MCH 30.9 MCHC 33.2 RDW 16.6 H D Plt Count 194 MPV 9.3 Sodium 143 Potassium 4.0 Chloride 107 Carbon Dioxide 23 Anion Gap 13 BUN 14 Creatinine 0.7 Creat Clearance w eGFR > 60 Random Glucose 80 Calcium 7.6 L Total Bilirubin 0.8 D AST 103 H ALT 61 Alkaline Phosphatase 105 Total Protein 7.2 Albumin 4.0 Urine Color Red Urine Appearance Turbid Urine pH 6.0 Ur Specific [place] 1.021 Urine Protein 2+ H Urine Glucose (UA) Negative Urine Ketones Trace H Urine Blood Negative Urine Nitrite Negative Urine Bilirubin Negative Urine Urobilinogen 2.0 H Ur Leukocyte Esterase 2+ H Urine WBC (Auto) 53 Urine RBC (Auto) 1 Ur Epithelial Cells Rare Urine Mucus Many RPR Titer 08/04/17 06:00 WBC RBC Hgb Hct MCV MCH MCHC RDW Plt Count MPV Sodium Potassium Chloride Carbon Dioxide Anion Gap BUN Creatinine Creat Clearance w eGFR Random Glucose Calcium Total Bilirubin AST ALT Alkaline Phosphatase Total Protein Albumin Urine Color Urine Appearance Urine pH Ur Specific [place] Urine Protein Urine Glucose (UA) Urine Ketones Urine Blood Urine Nitrite Urine Bilirubin Urine Urobilinogen Ur Leukocyte Esterase Urine WBC (Auto) Urine RBC (Auto) Ur Epithelial Cells Urine Mucus RPR Titer Nonreactive aaox3 ambulating no acute distress pt has her menses Assessment: 08/05/17 10:28 withdrawal sx Plan: continue detox increase fluids psych reordered
[2017-08-05] MEDS: METHADONE HCL 5 MG TABLET (FOR DETOX USE ONLY) PO SCH (10:29)
[2017-08-05] MEDS: PRENATAL VITAMINS W/ FOLIC ACID TABLET (FP) PO SCH (10:30)
[2017-08-05] MEDS: NICOTINE 21 MG/24 HOURS TOPICAL PATCH TD SCH (10:30)
[2017-08-05] MEDS: NICOTINE POLACRILEX 4 MG GUM BUC PRN ×2 (10:30→16:59)
[2017-08-05] MEDS: buPROPion HCL 75 MG TABLET PO SCH (10:30)
--- NOTE | 2017-08-05 12:51 | PN ---
Psychiatric Progress Note Vital Signs: Vital Signs Period Temp Pulse Resp BP Sys/Acuña Pulse Ox Last 24 Hr 97.7 F-98.2 F 81-115 16-19 100-122/57-84 Date of Session: 08/05/17 Chief Complaint:: "I'm having difficulty sleeping." HPI: Pt. admitted to for opiate and alcohol dependence. ROS: Unremarkable Current Medications: Active Medications Generic Name Dose Route Start Last Admin Trade Name Freq PRN Reason Stop Dose Admin Acetaminophen 650 mg 08/03/17 11:01 Tylenol - PO Q4H PRN FEVER Al Hydroxide/Mg Hydroxide 30 ml 08/03/17 11:01 Mylanta Oral Suspension - PO Q6H PRN DYSPEPSIA Bupropion HCl 75 mg 08/04/17 10:00 08/05/17 10:30 Wellbutrin - PO 75 mg DAILY SEAMUS Administration Chlordiazepoxide HCl 15 mg 08/05/17 17:00 Librium - PO 08/06/17 11:01 [id number] SEAMUS Chlordiazepoxide HCl 10 mg 08/06/17 17:00 Librium - PO 08/07/17 11:01 [id number] SEAMUS Chlordiazepoxide HCl 25 mg 08/03/17 11:01 08/05/17 01:30 Librium - PO 08/06/17 11:01 25 mg Q4H PRN Administration WITHDRAWAL(CONT SUBST) Emtricitabine/Rilpivirine/Tenofovir 1 each 08/04/17 08:00 08/05/17 09:00 Complera - PO 1 each DAILY@0800 SEAMUS Administration Eucalyptus/Menthol/Phenol/Sorbitol 1 each 08/03/17 11:01 Cepastat Lozenge - MM Q4H PRN SORE THROAT Guaifenesin 10 ml 08/03/17 11:01 Robitussin Dm - PO Q6H PRN COUGH Hydroxyzine Pamoate 50 mg 08/03/17 11:01 08/05/17 09:01 Vistaril - PO 50 mg Q4H PRN Administration AGITATION Ibuprofen 400 mg 08/03/17 11:01 08/05/17 05:16 Motrin - PO 400 mg Q6H PRN Administration PAIN LEVEL 4-6 Loperamide HCl 4 mg 08/03/17 11:01 Imodium - PO Q6H PRN DIARRHEA Magnesium Citrate 300 ml 02/28/18 11:01 Citroma - PO Q48H PRN CONSTIPATION Magnesium Hydroxide 30 ml 08/03/17 11:01 Milk Of Magnesia - PO DAILY PRN CONSTIPATION Methadone HCl 15 mg 08/05/17 10:00 08/05/17 10:29 Dolophine - PO 08/06/17 10:01 15 mg DAILY SEAMUS Administration Methadone HCl 5 mg 08/08/17 06:00 Dolophine - PO 08/08/17 06:01 DAILY@0600 SEAMUS Methadone HCl 10 mg 08/07/17 10:00 Dolophine - PO 08/07/17 10:01 DAILY SEAMUS Multi-Ingredient Lotion 1 applic 08/05/17 10:35 Eucerin (Small Jar) - TP DAILY SEAMUS Nicotine 21 mg 08/04/17 10:00 08/05/17 10:30 Nicoderm Patch - TD 21 mg DAILY SEAMUS Administration Nicotine Polacrilex 4 mg 08/03/17 11:01 08/05/17 10:30 Nicorette Gum - BUC 4 mg Q2H PRN Administration NICOTINE REPLACEMENT RX Multivit/Folic Acid/Iron 1 tab 08/04/17 10:00 08/05/17 10:30 Vitamins (Sjr) - PO 1 tab DAILY SEAMUS Administration Pseudoephedrine/Triprolidine 1 combo 08/03/17 11:01 Actifed - PO TID PRN NASAL CONGESTION Thiamine HCl 100 mg 08/03/17 22:00 08/04/17 21:25 Vitamin B1 - PO 100 mg HS SEAMUS Administration Trazodone HCl 50 mg 08/03/17 22:00 08/04/17 21:25 Desyrel - PO 50 mg HS SEAMUS Administration Medication(s) Change(s): Yes. Will increase trazodone 50mg qhs to 100mg qhs. 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 Pt. reports difficulty sleeping and is requesting Trazodone dose to be increased from 50mg to 100mg qhs. Sleep hygiene and psychoeducation provided. Will order Trazodone 100mg qhs. Benefits and side effects discussed. Verbal consent given. Will continue to monitor. Total face to face time:: 25 Mental Status Exam - Mental Status Exam Alert and Oriented to: Time, Place, Person Cognitive Function: Good Patient Appearance: Well Groomed Mood: Anxious Affect: Appropriate Patient Behavior: Appropriate, Cooperative Speech Pattern: Clear Voice Loudness: Normal Thought Process: Goal Oriented Thought Disorder: Not Present Hallucinations: Denies Suicidal Ideation: Denies Homicidal Ideation: Denies Insight/Judgement: Poor Sleep: Poorly Appetite: Fair Muscle strength/Tone: Normal Gait/Station: Normal Psychiatric Treatment Plan - Problem List (1) Substance induced mood disorder Current Visit: Yes (2) Alcohol dependence with uncomplicated withdrawal Current Visit: Yes (3) Opioid dependence on agonist therapy Current Visit: Yes (4) Insomnia Current Visit: Yes (5) Anxiety disorder Current Visit: Yes Qualifiers: Comment: Self reports. (6) MDD (major depressive disorder) Current Visit: Yes Comment: Self- reports
[2017-08-05 15:03] LABS: URINE APPEARANCE SLCLOUDY; URINE BILIRUBIN NEGATIVE (NEGATIVE); URINE BLOOD NEGATIVE (NEGATIVE); URINE COLOR DKYELLOW; URINE GLUCOSE (UA) NEGATIVE (NEGATIVE); URINE KETONE NEGATIVE (NEGATIVE); URINE NITRITE POSITIVE (NEGATIVE); URINE PROTEIN NEGATIVE (NEGATIVE)
[2017-08-05 15:06] LABS: URINE LEUK ESTERASE 2+ (NEGATIVE)
[2017-08-05 15:08] LABS: EPI CELLS RARE /HPF (FEW); URINE BACTERIA RARE /hpf (NONE SEEN); URINE MUCUS RARE
[2017-08-05] MEDS: chlordiazePOXIDE 5 MG CAPSULE PO SCH ×2 (16:55→22:43)
[2017-08-05] MEDS: THIAMINE HCL 100 MG TABLET (FP) PO SCH (22:42)
[2017-08-05] MEDS: traZODone HCL 100 MG TABLET (FP) PO SCH (22:43)
[2017-08-06] MEDS: chlordiazePOXIDE 5 MG CAPSULE PO SCH ×2 (05:59→10:27)
[2017-08-06] MEDS: hydrOXYzine PAMOATE 50 MG CAPSULE (FP) PO PRN ×4 (06:03→22:31)
[2017-08-06] MEDS: EMTRICITAB/RILPIVIRINE/TENOFOV 1 EACH TABLET PO SCH (07:06)
[2017-08-06] MEDS: PRENATAL VITAMINS W/ FOLIC ACID TABLET (FP) PO SCH (10:27)
[2017-08-06] MEDS: NICOTINE 21 MG/24 HOURS TOPICAL PATCH TD SCH (10:27)
[2017-08-06] MEDS: METHADONE HCL 5 MG TABLET (FOR DETOX USE ONLY) PO SCH (10:27)
[2017-08-06] MEDS: MINERAL OIL/PETROLAT/WATER TOPICAL CREAM 113 GM JAR TP SCH (10:28)
[2017-08-06] MEDS: buPROPion HCL 75 MG TABLET PO SCH (10:28)
[2017-08-06] MEDS: NICOTINE POLACRILEX 4 MG GUM BUC PRN (10:31)
--- NOTE | 2017-08-06 15:50 | PN ---
S Progress Note (SOAP) Subjective: ALERT,IRRITABLE,ANXIOUS,INTERRUPTED SLEEP Objective: 08/06/17 15:49 Vital Signs Temperature 97.7 F 08/06/17 11:52 Pulse Rate 76 08/06/17 11:52 Respiratory Rate 18 08/06/17 11:52 Blood Pressure 112/71 08/06/17 11:52 O2 Sat by Pulse Oximetry (%) Assessment: 08/06/17 15:49 WITHDRAWAL SYMPTOM Plan: CONTINUE DETOX
[2017-08-06] MEDS ORDERED: COLLOIDAL OATMEAL 1 BAR EACH TP PRN (15:52)
[2017-08-06] MEDS: chlordiazePOXIDE HCL 10 MG CAPSULE PO SCH ×2 (17:05→22:31)
[2017-08-06] MEDS: THIAMINE HCL 100 MG TABLET (FP) PO SCH (22:31)
[2017-08-06] MEDS: traZODone HCL 100 MG TABLET (FP) PO SCH (22:31)
[2017-08-06] MEDS: ACETAMINOPHEN 325 MG TABLET (FP) PO PRN (22:33)
[2017-08-07] MEDS: chlordiazePOXIDE HCL 10 MG CAPSULE PO SCH ×2 (06:36→10:47)
[2017-08-07] MEDS: EMTRICITAB/RILPIVIRINE/TENOFOV 1 EACH TABLET PO SCH (07:10)
[2017-08-07] MEDS: buPROPion HCL 75 MG TABLET PO SCH (09:52)
[2017-08-07] MEDS: PRENATAL VITAMINS W/ FOLIC ACID TABLET (FP) PO SCH (09:52)
[2017-08-07] MEDS: NICOTINE POLACRILEX 4 MG GUM BUC PRN ×2 (09:54→13:21)
[2017-08-07] MEDS: NICOTINE 21 MG/24 HOURS TOPICAL PATCH TD SCH (09:54)
[2017-08-07] MEDS ORDERED: METHADONE HCL 10 MG TABLET (FOR DETOX USE ONLY) PO SCH (10:00)
[2017-08-07] MEDS: MINERAL OIL/PETROLAT/WATER TOPICAL CREAM 113 GM JAR TP SCH (10:47)
--- NOTE | 2017-08-07 13:04 | PN ---
S Progress Note (SOAP) Subjective: alert oriented x 3 no acute distress tolerates food and fluid well motivated to get sober Objective: 08/07/17 13:03 Vital Signs Temperature 98.2 F 08/07/17 10:49 Pulse Rate 102 H 08/07/17 10:49 Respiratory Rate 20 08/07/17 10:49 Blood Pressure 92/56 08/07/17 10:49 O2 Sat by Pulse Oximetry (%) Laboratory Last Values WBC 5.9 K/mm3 (4.0-10.0) 08/04/17 06:00 RBC 3.98 M/mm3 (3.60-5.2) 08/04/17 06:00 Hgb 12.3 GM/dL (10.7-15.3) 08/04/17 06:00 Hct 37.1 % (32.4-45.2) 08/04/17 06:00 MCV 93.3 fl (80-96) 08/04/17 06:00 MCH 30.9 pg (25.7-33.7) 08/04/17 06:00 MCHC 33.2 g/dl (32.0-36.0) 08/04/17 06:00 RDW 16.6 % (11.6-15.6) H D 08/04/17 06:00 Plt Count 194 K/MM3 (134-434) 08/04/17 06:00 MPV 9.3 fl (7.5-11.1) 08/04/17 06:00 Sodium 143 mmol/L (136-145) 08/04/17 06:00 Potassium 4.0 mmol/L (3.5-5.1) 08/04/17 06:00 Chloride 107 mmol/L (98-107) 08/04/17 06:00 Carbon Dioxide 23 mmol/L (21-32) 08/04/17 06:00 Anion Gap 13 (8-16) 08/04/17 06:00 BUN 14 mg/dL (7-18) 08/04/17 06:00 Creatinine 0.7 mg/dL (0.55-1.02) 08/04/17 06:00 Creat Clearance w eGFR > 60 (>60) 08/04/17 06:00 Random Glucose 80 mg/dL (74-106) 08/04/17 06:00 Calcium 7.6 mg/dL (8.5-10.1) L 08/04/17 06:00 Total Bilirubin 0.8 mg/dL (0.2-1.0) D 08/04/17 06:00 AST 103 U/L (15-37) H 08/04/17 06:00 ALT 61 U/L (12-78) 08/04/17 06:00 Alkaline Phosphatase 105 U/L (45-117) 08/04/17 06:00 Total Protein 7.2 g/dl (6.4-8.2) 08/04/17 06:00 Albumin 4.0 g/dl (3.4-5.0) 08/04/17 06:00 Urine Color Dkyellow 08/05/17 13:10 Urine Appearance Slcloudy 08/05/17 13:10 Urine pH 7.0 (5.0-8.0) 08/05/17 13:10 Ur Specific [place] 1.012 (1.001-1.035) 08/05/17 13:10 Urine Protein Negative (NEGATIVE) 08/05/17 13:10 Urine Glucose (UA) Negative (NEGATIVE) 08/05/17 13:10 Urine Ketones Negative (NEGATIVE) 08/05/17 13:10 Urine Blood Negative (NEGATIVE) 08/05/17 13:10 Urine Nitrite Positive (NEGATIVE) 08/05/17 13:10 Urine Bilirubin Negative (NEGATIVE) 08/05/17 13:10 Urine Urobilinogen 2.0 mg/dL (0.2-1.0) H 08/05/17 13:10 Ur Leukocyte Esterase 2+ (NEGATIVE) H 08/05/17 13:10 Urine WBC (Auto) 18 /hpf (3-5) 08/05/17 13:10 Urine RBC (Auto) 1 /hpf (0-3) 08/05/17 13:10 Ur Epithelial Cells Rare /HPF (FEW) 08/05/17 13:10 Urine Bacteria Rare /hpf (NONE SEEN) 08/05/17 13:10 Urine Mucus Rare 08/05/17 13:10 RPR Titer Nonreactive (NONREACTIVE) 08/04/17 06:00 lab noted Assessment: 08/07/17 13:03 mild withdrawal sx Plan: medically supervised detox
[2017-08-07] MEDS: hydrOXYzine PAMOATE 50 MG CAPSULE (FP) PO PRN ×3 (13:20→21:29)
[2017-08-07] MEDS: THIAMINE HCL 100 MG TABLET (FP) PO SCH (22:37)
[2017-08-07] MEDS: traZODone HCL 100 MG TABLET (FP) PO SCH (22:38)
[2017-08-08] MEDS: ACETAMINOPHEN 325 MG TABLET (FP) PO PRN (02:38)
[2017-08-08] MEDS: hydrOXYzine PAMOATE 50 MG CAPSULE (FP) PO PRN ×2 (02:38→08:45)
[2017-08-08] MEDS ORDERED: METHADONE HCL 5 MG TABLET (FOR DETOX USE ONLY) PO SCH (06:00)
[2017-08-08 06:41] VITALS: BP 99/55; PULSE 85; TEMP 96.4
[2017-08-08] MEDS: EMTRICITAB/RILPIVIRINE/TENOFOV 1 EACH TABLET PO SCH (08:03)
--- NOTE | 2017-08-08 08:50 | DS ---
[facility] Detox Discharge Summary Admission Date: 08/03/17 Discharge Date: 08/08/17 - History Present History: Alcohol Dependence, Opioid Dependence - Physical Exam Results Vital Signs: Vital Signs Temperature 96.4 F L 08/08/17 06:00 Pulse Rate 85 08/08/17 06:00 Respiratory Rate 16 08/08/17 06:00 Blood Pressure 99/55 08/08/17 06:00 O2 Sat by Pulse Oximetry (%) Pertinent Admission Physical Exam Findings: withdrawal sx Laboratory Last Values WBC 5.9 K/mm3 (4.0-10.0) 08/04/17 06:00 RBC 3.98 M/mm3 (3.60-5.2) 08/04/17 06:00 Hgb 12.3 GM/dL (10.7-15.3) 08/04/17 06:00 Hct 37.1 % (32.4-45.2) 08/04/17 06:00 MCV 93.3 fl (80-96) 08/04/17 06:00 MCH 30.9 pg (25.7-33.7) 08/04/17 06:00 MCHC 33.2 g/dl (32.0-36.0) 08/04/17 06:00 RDW 16.6 % (11.6-15.6) H D 08/04/17 06:00 Plt Count 194 K/MM3 (134-434) 08/04/17 06:00 MPV 9.3 fl (7.5-11.1) 08/04/17 06:00 Sodium 143 mmol/L (136-145) 08/04/17 06:00 Potassium 4.0 mmol/L (3.5-5.1) 08/04/17 06:00 Chloride 107 mmol/L (98-107) 08/04/17 06:00 Carbon Dioxide 23 mmol/L (21-32) 08/04/17 06:00 Anion Gap 13 (8-16) 08/04/17 06:00 BUN 14 mg/dL (7-18) 08/04/17 06:00 Creatinine 0.7 mg/dL (0.55-1.02) 08/04/17 06:00 Creat Clearance w eGFR > 60 (>60) 08/04/17 06:00 Random Glucose 80 mg/dL (74-106) 08/04/17 06:00 Calcium 7.6 mg/dL (8.5-10.1) L 08/04/17 06:00 Total Bilirubin 0.8 mg/dL (0.2-1.0) D 08/04/17 06:00 AST 103 U/L (15-37) H 08/04/17 06:00 ALT 61 U/L (12-78) 08/04/17 06:00 Alkaline Phosphatase 105 U/L (45-117) 08/04/17 06:00 Total Protein 7.2 g/dl (6.4-8.2) 08/04/17 06:00 Albumin 4.0 g/dl (3.4-5.0) 08/04/17 06:00 Urine Color Dkyellow 08/05/17 13:10 Urine Appearance Slcloudy 08/05/17 13:10 Urine pH 7.0 (5.0-8.0) 08/05/17 13:10 Ur Specific [place] 1.012 (1.001-1.035) 08/05/17 13:10 Urine Protein Negative (NEGATIVE) 08/05/17 13:10 Urine Glucose (UA) Negative (NEGATIVE) 08/05/17 13:10 Urine Ketones Negative (NEGATIVE) 08/05/17 13:10 Urine Blood Negative (NEGATIVE) 08/05/17 13:10 Urine Nitrite Positive (NEGATIVE) 08/05/17 13:10 Urine Bilirubin Negative (NEGATIVE) 08/05/17 13:10 Urine Urobilinogen 2.0 mg/dL (0.2-1.0) H 08/05/17 13:10 Ur Leukocyte Esterase 2+ (NEGATIVE) H 08/05/17 13:10 Urine WBC (Auto) 18 /hpf (3-5) 08/05/17 13:10 Urine RBC (Auto) 1 /hpf (0-3) 08/05/17 13:10 Ur Epithelial Cells Rare /HPF (FEW) 08/05/17 13:10 Urine Bacteria Rare /hpf (NONE SEEN) 08/05/17 13:10 Urine Mucus Rare 08/05/17 13:10 RPR Titer Nonreactive (NONREACTIVE) 08/04/17 06:00 lab noted - Treatment Hospital Course: Detox Protocol Followed, Detoxed Safely, Responded well, Discharged Condition Good, Rehab Referral Accepted Patient has Accepted a Rehab Referral to: [facility] - Medication Discharge Medications: Ambulatory Orders Dextroamphetamine/Amphetamine [Adderall Xr 30 mg Capsule] 30 mg PO DAILY Bupropion HCl [Wellbutrin -] 75 mg PO DAILY #30 tablet 06/28/17 hydrOXYzine PAMOATE [Vistaril -] 50 mg PO Q6H PRN #30 capsule 06/28/17 traZODone HCL [Desyrel -] 50 mg PO HS #30 tablet 06/28/17 Emtricitab/Rilpivirine/Tenofov [Complera Tablet -] 1 each PO DAILY #30 tablet - Diagnosis (1) Opioid dependence with withdrawal Current Visit: Yes Status: Acute (2) Alcohol dependence with uncomplicated withdrawal Current Visit: Yes Status: Acute (3) HIV (human immunodeficiency virus infection) Current Visit: Yes Status: Chronic - AMA Did Patient Leave Against Medical Advice: No
[2017-08-08] MEDS: PRENATAL VITAMINS W/ FOLIC ACID TABLET (FP) PO SCH (09:08)
[2017-08-08] MEDS: buPROPion HCL 75 MG TABLET PO SCH (09:10)
--- NOTE | 2017-08-08 10:17 | PN ---
[facility] Progress Note Note: Psychiatry Attending's note : Called to enter scripts for this patient. Discharged today as per treatment plan. director nursing service Chintan's notes of 08/03 + 08/05/17 : appreciated. Medications reviewed.Confirmed.Discussed with DEBBIE Turcios. Benign hospital course.No report of adverse events from medications. Plan : Wellbutrin 75 mg po daily # 30 Trazodone 50 mg po hs # 30 Vistaril 50 mg po bid prn # 30 Scripts sent to [facility].
== END 2017-08-08 10:25 | disposition home or self-care (01) | DRG 773 ==
LOC: YASAS 08:59 → Y6N 11:23
PROVIDERS: ADMIT Internal Medicine; ATTEND Internal Medicine
PROC: HZ2ZZZZ Detoxification Services for Substance Abuse Treatment (ICD-10-PCS; principal; 2017-08-03)
DX: F11.23 Opioid dependence with withdrawal (principal); F10.230 Alcohol dependence with withdrawal, uncomplicated; F13.230 Sedative, hypnotic or anxiolytic dependence with withdrawal, uncomplicated; F17.210 Nicotine dependence, cigarettes, uncomplicated; F33.9 Major depressive disorder, recurrent, unspecified; F41.9 Anxiety disorder, unspecified; F19.24 Other psychoactive substance dependence with psychoactive substance-induced mood disorder; Z21 Asymptomatic human immunodeficiency virus [HIV] infection status; G47.00 Insomnia, unspecified; R00.0 Tachycardia, unspecified
CPT/HCPCS: 36415; 80053; 81003; 81015; 85027; 86593; 93005; 93010; J0735